=== PATIENT | female | born 1960 | race Caucasian/White ===

== ENCOUNTER 2018-11-16 10:23 | Day surgery (SDC) | payer OTHER ==
[~2018-11-16 10:23] MED LIST: METOCLOPRAMIDE 10 MG INJ; SEVOFLURANE 15 MIN
[2018-11-16] MEDS ORDERED: PROPOFOL 20 ML (11:19)
[2018-11-16] MEDS ORDERED: LIDOCAINE 2% (SDV) 5 ML INJ (11:21)
[2018-11-16] MEDS ORDERED: FENTAnyl 50 MCG/ML VIAL (11:23)
[2018-11-16] MEDS ORDERED: MIDAZOLAM 1 MG/ML 2 ML INJ (11:23)
[2018-11-16] MEDS ORDERED: CEFAZOLIN 1 GM INJ (11:23)
[2018-11-16] MEDS ORDERED: BUPIVACAINE 0.25% (MPF) 30 ML INJ (11:32)
[2018-11-16] MEDS ORDERED: ROPIVACAINE 0.5 % 30 ML VIAL (11:59)
[2018-11-16] MEDS ORDERED: ONDANSETRON 4 MG INJ (12:16)
[2018-11-16] MEDS ORDERED: ACETAMINOPHEN 325 MG TAB PO (14:00)
== END 2018-11-16 15:23 | disposition home or self-care (01) ==
LOC: SDS 10:23
DX: N84.1 Polyp of cervix uteri (principal); N84.0 Polyp of corpus uteri; I10 Essential (primary) hypertension; E11.9 Type 2 diabetes mellitus without complications; E03.9 Hypothyroidism, unspecified; E78.5 Hyperlipidemia, unspecified; E66.01 Morbid (severe) obesity due to excess calories; Z68.41 Body mass index [BMI] 40.0-44.9, adult
CPT/HCPCS: 58558; 82962; 84702; 86850; 86900; 86901; 88305